=== PATIENT | female | born 1990 | race Caucasian/White ===

== ENCOUNTER 2017-11-03 00:45 | Emergency (ER) | payer OTHER ==
[2017-11-03 02:17] VITALS: BP 113/78; PULSE 110; TEMP 98.3; BMI 21.0
--- NOTE | 2017-11-03 03:53 | PDOC ---
History of Present Illness - General History Source: Patient Exam Limitations: No Limitations - History of Present Illness Initial Comments: 11/03/17 05:37 The patient is a 27 year old female with a past medical history of asthma and migraines who presents to the ED with complaints of nausea and vomiting since earlier today. The patient states she had dinner at her friends house around 8pm and ate BBQ ribs. She reports a sudden onset of nausea and vomiting around 10:30 pm tonight. She reports 4 episodes of vomiting of food content. Patient also states she experiences slight generalized weakness associated with symptoms. Denies fever or chills. Denies chest pain or shortness of breath. Denies dysuria or change in urinary output. Denies throat pain or ear pain. Denies diarrhea. Denies any other symptoms. <Freddy Irby - Last Filed: 11/03/17 05:37> <Mariola Galindo - Last Filed: 11/03/17 06:28> - General Chief Complaint: Nausea/Vomiting Stated Complaint: DIZZNESS, VOMITING Time Seen by Provider: 11/03/17 02:50 Past History <Freddy Irby - Last Filed: 11/03/17 05:37> - Past Medical History Asthma: Yes (Reactive) Cancer: No Cardiac Disorders: No COPD: No Diabetes: No HTN: No Seizures: No Thyroid Disease: No - Reproductive History Cervical CA: No Dysfunctional Uterine Bleeding: No Ectopic : No Endometrial CA: No Polycystic Ovaries: No - Immunization History Immunization Up to Date: Yes - Suicide/Smoking/Psychosocial Hx Smoking Status: No Smoking History: Never smoked Years of Tobacco Use: 0 Have you smoked in the past 12 months: No Number of Cigarettes Smoked Daily: 0 Cigars Per Day: 0 Information on smoking cessation initiated: No Hx Alcohol Use: No Drug/Substance Use Hx: No Substance Use Type: None Hx Substance Use Treatment: No <Mariola Galindo - Last Filed: 11/03/17 06:28> - Past Medical History Allergies/Adverse Reactions: Allergies Allergy/AdvReac Type Severity Reaction Status Date / Time amoxicillin [From Augmentin] Allergy Severe Hives Verified 11/03/17 02:12 clavulanic acid Allergy Severe Hives Verified 11/03/17 02:12 [From Augmentin] hydrocodone [Hydrocodone] Allergy Intermediate Itching Verified 11/03/17 02:12 Home Medications: Ambulatory Orders Vit 108/Iron/Folic AC [ One Tablet] 1 each PO DAILY 02/11/14 Acetaminophen [Tylenol .Regular Strength -] 650 mg PO Q3H PRN #1 tablet Ibuprofen [Motrin -] 600 mg PO Q4H PRN #1 tablet 02/13/14 Review of Systems - Review of Systems Able to Perform ROS?: Yes Comments:: 11/03/17 05:38 CONSTITUTIONAL: Absent: fever, chills, diaphoresis, generalized weakness, malaise, loss of appetite HEENT: Absent: rhinorrhea, nasal congestion, throat pain, throat swelling, difficulty swallowing, mouth swelling, ear pain, eye pain, visual Changes CARDIOVASCULAR: Absent: chest pain, syncope, palpitations, irregular heart rate, lightheadedness , peripheral edema RESPIRATORY: Absent: cough, shortness of breath, dyspnea with exertion, orthopnea, wheezing, stridor, hemoptysis GASTROINTESTINAL: + nausea, vomiting Absent: abdominal pain, abdominal distension, diarrhea, constipation, melena, hematochezia GENITOURINARY: Absent: dysuria, frequency, urgency, hesitancy, hematuria, flank pain, genital pain MUSCULOSKELETAL: Absent: myalgia, arthralgia, joint swelling SKIN: Absent: rash, itching, pallor HEMATOLOGIC/IMMUNOLOGIC: Absent: easy bleeding, easy bruising, lymphadenopathy, frequent infections ENDOCRINE: Absent: unexplained weight gain, unexplained weight loss, heat intolerance, cold intolerance NEUROLOGIC: Absent: headache, focal weakness or paresthesias, dizziness, unsteady gait, seizure, mental status changes, bladder or bowel incontinence PSYCHIATRIC: Absent: anxiety, depression, suicidal or homicidal ideation, hallucinations. All Other Systems: Reviewed and Negative <Freddy Irby - Last Filed: 11/03/17 05:37> *Physical Exam - Vital Signs Last Vital Signs Temp Pulse Resp BP Pulse Ox 98.3 F 110 H 20 113/78 97 11/03/17 02:13 11/03/17 02:13 11/03/17 02:13 11/03/17 02:13 11/03/17 02:13 - Physical Exam Comments: 11/03/17 05:38 GENERAL: Well developed, well nourished. Awake and alert. No acute distress. HEENT: Normocephalic, atraumatic. PERRLA, EOMI. No conjunctival pallor. Sclera are non- icteric. Moist mucous membranes. Oropharynx is clear. NECK: Supple. Full ROM. No JVD. Carotid pulses 2+ and symmetric, without bruits. No thyromegaly. NCo lymphadenopathy. CARDIOVASCULAR: + Tachycardic, Regular rhythm. No murmurs, rubs, or gallops. Distal pulses are 2 + and symmetric. PULMONARY: No evidence of respiratory distress. Lungs clear to auscultation bilaterally. No wheezing, rales or rhonchi. ABDOMINAL: + gassy bowel sounds Soft. Non-tender. Non-distended. No rebound or guarding. No organomegaly. MUSCULOSKELETAL Normal range of motion at all joints. No bony deformities or tenderness. No CVA tenderness. EXTREMITIES: No cyanosis. No clubbing. No edema. No calf tenderness. SKIN: Warm and dry. Normal capillary refill. No rashes. No jaundice. NEUROLOGICAL: Alert, awake, appropriate. Cranial nerves 2-12 intact. No deficits to light touch and temperature in face, upper extremities and lower extremities. No motor deficits in the in face, upper extremities and lower extremities. Normoreflexic in the upper and lower extremities. Normal speech. Toes are down- going bilaterally. Gait is normal without ataxia. PSYCHIATRIC: Cooperative. Good eye contact. Appropriate mood and affect. <Freddy Irby - Last Filed: 11/03/17 05:37> - Vital Signs Last Vital Signs Temp Pulse Resp BP Pulse Ox 98.3 F 110 H 20 113/78 97 11/03/17 02:13 11/03/17 02:13 11/03/17 02:13 11/03/17 02:13 11/03/17 02:13 <Mariola Galindo - Last Filed: 11/03/17 06:28> ED Treatment Course - LABORATORY CBC & Chemistry Diagram: 11/03/17 04:00 11/03/17 04:00 - ADDITIONAL ORDERS Additional order review: Laboratory Results 11/03/17 11/03/17 04:00 04:00 Sodium 139 Potassium 3.7 Chloride 103 Carbon Dioxide 27 Anion Gap 9 BUN 19 H Creatinine 0.6 Creat Clearance w eGFR > 60 Random Glucose 83 Calcium 7.9 L Total Bilirubin 0.7 AST 10 L ALT 16 Alkaline Phosphatase 63 Total Protein 7.0 Albumin 3.9 Serum , Qual Negative 11/03/17 04:00 RBC 4.64 D MCV 85.7 MCHC 33.6 RDW 12.6 D MPV 7.8 D Neutrophils % 83.8 H Lymphocytes % 8.5 D Monocytes % 7.3 Eosinophils % 0.2 Basophils % 0.2 - Medications Given in the ED: ED Medications Discontinued Medications Generic Name Dose Route Start Last Admin Trade Name Alonso PRN Reason Stop Dose Admin Famotidine/Sodium Chloride 20 mg in 50 mls @ 100 mls/hr 11/03/17 04:30 04:51 Pepcid 20 Mg Premixed Ivpb - IVPB 11/03/17 04:59 100 mls/hr ONCE ONE Administration Sodium Chloride 1,000 ml 11/03/17 03:54 11/03/17 04:50 Normal Saline - IV 11/03/17 03:55 1,000 ml ONCE ONE Administration <Freddy Irby - Last Filed: 11/03/17 05:37> - LABORATORY CBC & Chemistry Diagram: 11/03/17 04:00 11/03/17 04:00 <Mariola Galindo - Last Filed: 11/03/17 06:28> *DC/Admit/Observation/Transfer - Attestations Scribe Attestion: 11/03/17 05:38 Documentation prepared by Freddy Irby, acting as medical office specialist for Mariola Galnido MD <Freddy Irby - Last Filed: 11/03/17 05:37> - Discharge Dispostion Admit: No <Mariola Galindo - Last Filed: 11/03/17 06:28> Diagnosis at time of Disposition: Vomiting, Viral gastroenteritis - Discharge Dispostion Disposition: HOME Condition at time of disposition: Improved - Referrals Referrals: Katharine Wilson MD [Primary Care Provider] - - Patient Instructions Printed Discharge Instructions: DI for Vomiting -- Adult, DI for Nausea -- Adult, Viral Gastroenteritis - Post Discharge Activity Forms/Work/School Notes: Back to Work
[2017-11-03] MEDS ORDERED: SODIUM CHLORIDE 0.9% 500 ML INFUS.BAG IV ONE ×2 (03:54→05:40)
[2017-11-03] MEDS ORDERED: FAMOTIDINE 20 MG/50 ML IVPB 20 MG/50 ML MG IVPB ONE ×2 (04:04→04:30)
[2017-11-03 04:18] LABS: BASO % 0.2 % (0-2.0); EOS % 0.2 % (0-4.5); HEMATOCRIT 39.8 % (32.4-45.2); HEMOGLOBIN 13.4 GM/dL (10.7-15.3); LYMPH % 8.5 % (8-40); MCH 28.8 pg (25.7-33.7); MCHC 33.6 g/dl (32.0-36.0); MEAN CELL VOLUME 85.7 fl (80-96); MEAN PLT VOLUME 7.8 fl (7.5-11.1); MONO % 7.3 % (3.8-10.2); NEUT % 83.8 % (42.8-82.8); PLATELET COUNT 212 K/MM3 (134-434); RBC 4.64 M/mm3 (3.60-5.2); RDW 12.6 % (11.6-15.6); WHITE BLOOD COUNT 14.1 K/mm3 (4.0-10.0)
[2017-11-03 04:47] LABS: ALBUMIN 3.9 g/dl (3.4-5.0); ANION GAP 9 (8-16); BILIRUBIN,TOTAL 0.7 mg/dL (0.2-1.0); BLOOD UREA NITROGEN 19 mg/dL (7-18); CALCIUM 7.9 mg/dL (8.5-10.1); CHLORIDE 103 mmol/L (98-107); CO2 27 mmol/L (21-32); CREATININE 0.6 mg/dL (0.55-1.02); GLUCOSE,RANDOM 83 mg/dL (74-106); POTASSIUM 3.7 mmol/L (3.5-5.1); SGOT/AST 10 U/L (15-37); SGPT/ALT 16 U/L (12-78); SODIUM 139 mmol/L (136-145)
[2017-11-03 04:48] LABS: ALK PHOS 63 U/L (45-117)
[2017-11-03] MEDS ORDERED: METOCLOPRAMIDE HCL INJECTION 10 MG/2 ML VIAL IVPUSH ONE (05:43)
[2017-11-03] MEDS ORDERED: METOCLOPRAMIDE HCL INJECTION 10 MG/2 ML VIAL ONE (05:56)
[2017-11-03 05:59] LABS: URINE APPEARANCE CLEAR; URINE BILIRUBIN NEGATIVE (NEGATIVE); URINE BLOOD NEGATIVE (NEGATIVE); URINE COLOR YELLOW; URINE GLUCOSE (UA) NEGATIVE (NEGATIVE); URINE KETONE 2+ (NEGATIVE); URINE LEUK ESTERASE TRACE (NEGATIVE); URINE NITRITE NEGATIVE (NEGATIVE); URINE PROTEIN NEGATIVE (NEGATIVE)
[2017-11-03 06:02] LABS: EPI CELLS FEW /HPF (FEW); URINE MUCUS MODERATE
== END 2017-11-03 07:40 | disposition home or self-care (01) ==
LOC: JER 00:45
PROC: 3E033GC Introduction of Other Therapeutic Substance into Peripheral Vein, Percutaneous Approach (ICD-10-PCS; principal; 2017-11-03)
PROC: 3E033GC Introduction of Other Therapeutic Substance into Peripheral Vein, Percutaneous Approach (ICD-10-PCS; 2017-11-03)
DX: K52.9 Noninfective gastroenteritis and colitis, unspecified (principal)
CPT/HCPCS: 36415; 80053; 81003; 81015; 84703; 85025; 96365; 96375; 99282-25

== ENCOUNTER 2020-08-26 20:36 | Observation (INO) | payer OTHER ==
[2020-08-26 21:10] VITALS: BMI 22.8
[2020-08-26] MEDS ORDERED: FAMOTIDINE 20 MG/50 ML IVPB 20 MG/50 ML MG IVPB ONE ×2 (21:47→21:57)
[2020-08-26] MEDS ORDERED: MAG HYDROX/AL HYDROX/SIMETH 30 ML UNIT-DOSE CUP PO PRN (21:47)
[2020-08-26] MEDS ORDERED: MAG HYDROX/AL HYDROX/SIMETH 30 ML UNIT-DOSE CUP ONE (21:57)
[2020-08-26 22:29] LABS: BASO % 0.8 % (0-2.0); EOS % 0.7 % (0-4.5); HEMATOCRIT 42.1 % (32.4-45.2); HEMOGLOBIN 14.5 GM/dL (10.7-15.3); LYMPH % 27.8 % (8-40); MCH 29.9 pg (25.7-33.7); MCHC 34.4 g/dl (32.0-36.0); MEAN CELL VOLUME 86.9 fl (80-96); MEAN PLT VOLUME 6.9 fl (7.5-11.1); MONO % 9.1 % (3.8-10.2); NEUT % 61.6 % (42.8-82.8); PLATELET COUNT 347 K/MM3 (134-434); RBC 4.84 M/mm3 (3.60-5.2); RDW 12.4 % (11.6-15.6); WHITE BLOOD COUNT 14.4 K/mm3 (4.0-10.0)
[2020-08-26 22:45] LABS: CHLORIDE 104 mmol/L (98-107); SODIUM 142 mmol/L (136-145)
[2020-08-26 22:47] LABS: CALCIUM 8.9 mg/dL (8.5-10.1)
[2020-08-26 22:48] LABS: ANION GAP 6 MMOL/L (8-16); BLOOD UREA NITROGEN 10.7 mg/dL (7-18); CO2 31 mmol/L (21-32); GLUCOSE,RANDOM 80 mg/dL (74-106); LIPASE 171 U/L (73-393)
[2020-08-26 22:50] LABS: BILIRUBIN,DIRECT 0.1 mg/dL (0.0-0.2)
[2020-08-26 22:51] LABS: CREATININE 0.8 mg/dL (0.55-1.3); INR 0.97 (0.83-1.09); SGOT/AST 9 U/L (15-37); SGPT/ALT 14 U/L (13-61)
[2020-08-26 22:52] LABS: BILIRUBIN,TOTAL 0.3 mg/dL (0.2-1)
[2020-08-26 22:53] LABS: TOT PROT 7.5 g/dl (6.4-8.2)
[2020-08-26 22:54] LABS: ACTIVATED PTT 30.8 SECONDS (25.2-36.5); ALK PHOS 71 U/L (45-117)
[2020-08-26 22:55] LABS: LDH 194 U/L (84-246)
[2020-08-26 23:22] LABS: URINE APPEARANCE CLEAR; URINE BILIRUBIN NEGATIVE (NEGATIVE); URINE COLOR YELLOW; URINE GLUCOSE (UA) NEGATIVE (NEGATIVE); URINE KETONE NEGATIVE (NEGATIVE); URINE LEUK ESTERASE NEGATIVE (NEGATIVE); URINE NITRITE NEGATIVE (NEGATIVE); URINE PROTEIN NEGATIVE (NEGATIVE); URINE UROBILINOGEN 0.2 mg/dL (0.2-1.0)
[2020-08-27] MEDS ORDERED: SODIUM CHLORIDE 0.9% 500 ML INFUS.BAG IV ONE (02:20)
[2020-08-27] MEDS ORDERED: ACETAMINOPHEN 325 MG TABLET (FP) ONE ×2 (02:31→16:19)
[2020-08-27] MEDS: ACETAMINOPHEN 325 MG TABLET (FP) PO PRN ×2 (02:42→16:27)
[2020-08-27] MEDS ORDERED: ENOXAPARIN NA (PORCINE) 40 MG/0.4 ML DISP.SYRIN SQ ONE (12:02)
[2020-08-27] MEDS: ENOXAPARIN NA (PORCINE) 40 MG/0.4 ML DISP.SYRIN SQ SCH (12:07)
[2020-08-27] MEDS ORDERED: KETOROLAC TROMETHAMINE 15 MG/ML VIAL IM ONE (16:23)
[2020-08-27] MEDS ORDERED: ALBUTEROL SO4 HFA INHALER IH PRN (17:05)
[2020-08-28 06:02] LABS: BASO % 0.6 % (0-2.0); EOS % 1.2 % (0-4.5); HEMATOCRIT 38.2 % (32.4-45.2); HEMOGLOBIN 13.4 GM/dL (10.7-15.3); LYMPH % 35.2 % (8-40); MCH 30.5 pg (25.7-33.7); MCHC 35.1 g/dl (32.0-36.0); MEAN PLT VOLUME 6.6 fl (7.5-11.1); MONO % 8.4 % (3.8-10.2); NEUT % 54.6 % (42.8-82.8); PLATELET COUNT 248 K/MM3 (134-434); RBC 4.38 M/mm3 (3.60-5.2); RDW 12.6 % (11.6-15.6); WHITE BLOOD COUNT 10.4 K/mm3 (4.0-10.0)
[2020-08-28 06:21] LABS: CALCIUM 8.9 mg/dL (8.5-10.1)
[2020-08-28 06:22] LABS: ALBUMIN 3.5 g/dl (3.4-5.0); BLOOD UREA NITROGEN 16.4 mg/dL (7-18); MAGNESIUM 2.5 mg/dL (1.8-2.4)
[2020-08-28 06:25] LABS: CREATININE 0.8 mg/dL (0.55-1.3); PHOSPHOROUS 4.3 mg/dL (2.5-4.9)
[2020-08-28 06:26] LABS: BILIRUBIN,TOTAL 0.5 mg/dL (0.2-1); TOT PROT 6.4 g/dl (6.4-8.2)
[2020-08-28 06:49] VITALS: TEMP 98.3
[2020-08-28] MEDS ORDERED: ENOXAPARIN NA (PORCINE) 40 MG/0.4 ML DISP.SYRIN SQ ONE (10:15)
[2020-08-28] MEDS: ENOXAPARIN NA (PORCINE) 40 MG/0.4 ML DISP.SYRIN SQ SCH (10:33)
[2020-08-28 10:55] VITALS: BP 120/76; PULSE 89
== END 2020-08-28 13:00 | disposition home or self-care (01) ==
LOC: JERFT 20:36 → UNDOADMOB 08-27 01:40 → INTOOBSV 08-27 01:40 → JERBED 08-27 01:40
PROVIDERS: ADMIT Internal Medicine; ATTEND Nurse Practitioner Family
PROC: 3E023GC Introduction of Other Therapeutic Substance into Muscle, Percutaneous Approach (ICD-10-PCS; principal; 2020-08-28)
PROC: 3E0233Z Introduction of Anti-inflammatory into Muscle, Percutaneous Approach (ICD-10-PCS; 2020-08-28)
PROC: 3E0337Z Introduction of Electrolytic and Water Balance Substance into Peripheral Vein, Percutaneous Approach (ICD-10-PCS; 2020-08-28)
DX: R07.81 Pleurodynia (principal); U07.1 COVID-19; J45.998 Other asthma; G43.909 Migraine, unspecified, not intractable, without status migrainosus; R06.00 Dyspnea, unspecified; Z88.8 Allergy status to other drugs, medicaments and biological substances
CPT/HCPCS: 36415; 71046-TC-FY; 71275-TC; 80053; 81003; 82248; 82550; 82728; 83605; 83615; 83690; 83735; 84100; 84484; 84703; 85025; 85379; 85610; 85730; 86140; 86769; 87040; 87086; 87804; 93005; 93010; 93306-TC; 96372; 99285-25; C9803; G0378; Q9967; U0003